=== PATIENT | male | born 1995 | race Hispanic/Latino ===

== ENCOUNTER 2023-04-14 11:45 | Emergency (ER) | payer OTHER ==
[~2023-04-14] VITALS: Ht 175.3 cm; Wt 63.6 kg
[2023-04-14] MEDS ORDERED: BACITRACIN OINTMENT 30GM TUBE TOP ONE (13:40)
[2023-04-14 14:36] VITALS: BP 131/66; TEMP 97.6; O2SAT 98
== END 2023-04-14 14:39 | disposition home or self-care (01) ==
LOC: M ED 11:45
DX: S61.211A Laceration without foreign body of left index finger without damage to nail, initial encounter (principal); W26.8XXA Contact with other sharp object(s), not elsewhere classified, initial encounter; Y99.0 Civilian activity done for income or pay